=== PATIENT | male | born 1955 | race Two or more races ===

== ENCOUNTER 2021-01-11 11:01 | Emergency (ER) | payer OTHER ==
[~2021-01-11] VITALS: Ht 180.3 cm; Wt 82.1 kg
[2021-01-11] MEDS ORDERED: LIPITOR40 MG PO (11:18)
[2021-01-11] MEDS ORDERED: ZIAC 10/6.25 MG1 TAB PO (11:18)
[2021-01-11] MEDS ORDERED: CHILDREN'S ASPI81 MG PO (11:18)
[2021-01-11] MEDS ORDERED: NIACIN500 M3 PO (11:19)
[2021-01-11] MEDS ORDERED: DORYX200 MG PO (11:19)
== END 2021-01-11 17:02 | disposition home or self-care (01) ==
LOC: ER 11:01
DX: T18.128A Food in esophagus causing other injury, initial encounter (principal); K21.9 Gastro-esophageal reflux disease without esophagitis; K22.2 Esophageal obstruction; K22.8 Other specified diseases of esophagus; X58.XXXA Exposure to other specified factors, initial encounter; Y93.89 Activity, other specified; Y92.89 Other specified places as the place of occurrence of the external cause; Y99.8 Other external cause status; Z03.818 Encounter for observation for suspected exposure to other biological agents ruled out